=== PATIENT | male | born 1950 | race Caucasian/White ===

== ENCOUNTER 2016-11-14 15:40 | Inpatient (IN) | payer OTHER ==
[~2016-11-14] VITALS: Ht 165.1 cm; Wt 75.7 kg
[2016-11-14] MEDS ORDERED: IV NS 0.9% 1,000 ML BAG IV ONE (16:00)
--- NOTE | 2016-11-14 16:00 | NUR ---
PATIENT BIB RA FROM [facility] D/T [facility]NC[facility]. PATIENT IS A/OX 4 AT THIS TIME. BREATHING EVEN AND UNLABORED ON ROOM AIR. NO SOB. NO TRAUMA NOTED. HAS ACTIVE DIARRHEA. PATIENT'S VITALS STABLE. SAFETY AND COMFORT MEASURES IN PLACE. AWAITING MD ORDERS.
--- NOTE | 2016-11-14 16:10 | NUR ---
IV ON LEFT HAND, 18 G IS LEAKING. IV REMOVED. NEW IV STARTED ON RFA, 20 G.
[2016-11-14 16:19] LABS: BASOPHILS # (AUTO) 0.1 /CMM (0.0-0.2); EOSINOPHILS # (AUTO) 0.1 /CMM (0.0-0.7); EOSINOPHILS % (AUTO) 1.6 % (0.0-6.0); HEMATOCRIT 40 % (39-51); HEMOGLOBIN 12.9 g/dL (13.5-17.5); LYMPHOCYTES # (AUTO) 2.2 /CMM (0.8-4.8); LYMPHOCYTES % (AUTO) 30.1 % (20.0-44.0); MEAN CORPUSCULAR HEMOGLOBIN 24 PG (26.0-33.0); MEAN CORPUSCULAR HGB CONC 32 g/dl (31.0-36.0); MEAN CORPUSCULAR VOLUME 75 fL (80-96); MONOCYTES # (AUTO) 0.6 /CMM (0.1-1.30); MONOCYTES % (AUTO) 7.8 % (2.0-12.0); NEUTROPHILS # (AUTO) 4.4 /CMM (1.8-8.9); NEUTROPHILS % (AUTO) 59.5 % (43.0-81.0); PLATELET COUNT (AUTO) 288 /CMM (150-450); RED BLOOD CELL COUNT(AUTO) 5.35 MIL/uL (4.5-6.0); WHITE BLOOD COUNT (AUTO) 7.3 K/uL (4.3-11.0)
[2016-11-14 16:30] LABS: CALCIUM, SERUM 8.9 mg/dL (8.5-10.1); CARBON DIOXIDE 25 mmol/L (21-32); CHLORIDE 106 mmol/L (98-107); CREATININE 1.3 mg/dL (0.6-1.3); GLUCOSE 147 mg/dL (74-106); POTASSIUM 3.8 mmol/L (3.5-5.1); SODIUM SERUM 141 mmol/L (136-145); UREA NITROGEN, BLOOD 29 mg/dL (7-18)
--- NOTE | 2016-11-14 16:35 | NUR ---
PATIENT TAKEN TO CT VIA STRETCHER.
[2016-11-14 16:40] LABS: TROPONIN I < 0.017 ng/mL (0.00-0.056)
[2016-11-14 16:41] LABS: INR 1.02 (0.87-1.13); PROTHROMBIN TIME 10.9 SECS (9.5-12.7)
--- NOTE | 2016-11-14 16:45 | NUR ---
PATIENT RETURNED FROM CT.
--- NOTE | 2016-11-14 18:32 | NUR ---
PATIENT C/O BLOODY STOOL, DR. PARISI COLLECTED GUAIAC SAMPLE AND SENT TO LAB. WILL CONTINUE TO MONITOR.
[2016-11-14] MEDS ORDERED: OMEP10CA4 PO (18:53)
[2016-11-14] MEDS ORDERED: FINA5TAB11 PO (18:53)
[2016-11-14] MEDS ORDERED: ATOR10TA PO (18:53)
[2016-11-14] MEDS ORDERED: TAMS0.4C34 PO (18:53)
[2016-11-14] MEDS ORDERED: PANTOPRAZOLE 80 MG in IV NS 0.9% 500 ML IV ONE (19:00)
--- NOTE | 2016-11-14 19:00 | NUR ---
PATIENT WILL BE ADMITTED INTO [facility] BED 308-1.
[2016-11-14] MEDS ORDERED: PANTOPRAZOLE 40 MG VIAL ONE (19:02)
--- NOTE | 2016-11-14 19:25 | NUR ---
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
[2016-11-14] MEDS ORDERED: PANTOPRAZOLE 40 MG VIAL IV ONE (19:30)
--- NOTE | 2016-11-14 19:31 | NUR ---
declan santa took report for yan
--- NOTE | 2016-11-14 19:40 | NUR ---
DR ISRAEL ON THE PHONE WITH DR PARISI.
--- NOTE | 2016-11-14 19:55 | NUR ---
transported pt to tele bed without incident
[2016-11-14 20:00] VITALS: BP 135/66
--- NOTE | 2016-11-14 20:00 | NUR ---
TELE/RN OPENING NOTES PT RECEIVED VIA GURNEY FROM ER. PT AWAKE AND ALERTX4. ON ROOM AIR, DENIES SOB OR PAIN, BREATHING EVEN AND UNLABORED. NO S/S OF DISTRESS NOTED. PLACED ON TELE MONITOR SHOWING SINUS RHYTHM WITH HEART RATE AT 69. IV TO RFA PATENT AND INTACT. ORIENTED PT TO ROOM AND CALL LIGHT AND ENCOURAGED PT TO CALL FOR ASSISTANCE WHEN NEEDING TO USE RESTROOM. URINAL PLACED AT BEDSIDE. BELONGINGS LIST COMPLETED AND PLACE IN CHART. INFORMED PT ABOUT PLAN OF CARE. BED IN LOW/LOCKED POSITION, CALL LIGHT WITHIN REACH. SIDE RAILS UPX2. WILL CONTINUE TO MONITOR
[2016-11-14] MEDS ORDERED: Z GUARD REMEDY 2 OZ OINT TP PRN (20:30)
[2016-11-14] MEDS ORDERED: ZOLPIDEM TARTRATE 5 MG TABLET PO PRN (20:30)
[2016-11-14] MEDS ORDERED: HYDROCODONE/APAP 5/325MG 1 EACH TABLET PO PRN (20:30)
[2016-11-14] MEDS ORDERED: ONDANSETRON HCL/PF 4 MG/2 ML VIAL IVP PRN (20:30)
--- NOTE | 2016-11-14 23:54 | NUR ---
TELE/RN NOTES DR. ISRAEL AT BEDSIDE. ASSESSMENT PERFORMED. NO NEW ORDERS AT THIS TIME.
[2016-11-15] VITALS (7 sets, daily range): BP systolic 104–127; BP diastolic 44–72
--- NOTE | 2016-11-15 | NUR ---
TELE/RN NOTES (PCP) PT REQUESTING THAT EPIC MD CONTACT HIS PCP DR. NAIK FROM [facility] AT [phone]
[2016-11-15] MEDS: ACETAMINOPHEN 325 MG TABLET PO PRN (03:16)
--- NOTE | 2016-11-15 03:23 | NUR ---
TELE/RN NOTES PT COMPLAINING OF HEADACHE AND NAUSEA. ADMINISTERED PRN TYLENOL AND ZOFRAN ORDERED. WILL MONITOR FOR EFFECTIVENESS. SMALL SIP OF WATER GIVEN WITH TYLENOL
--- NOTE | 2016-11-15 06:41 | NUR ---
TELE/RN CLOSING NOTES PT AWAKE, A/OX4. REMAINS ON RA, BREATHING EVEN AND UNLABORED. NO S/S OF DISTRESS. DENIES SOB OR PAIN AT THIS TIME. ON TELE MONITOR SHOWING SINUS FERCHO WITH HR AT 56. NO NAUSEA NOTED. IV TO RFA PATENT AND INTACT. PT REQUESTING THAT EPIC MD CONTACT HIS PCP (DR. NAIK FROM [facility] AT [phone]). PT SAID HE ALSO WILL CALL HIS PCP THIS AM AROUND [phone]. PT FEELING CONSTIPATED, USED RESTROOM WITH NO BM BUT WITH SOME BRIGHT RED BLOOD TO TOILET PAPER. OTHERWISE PT MADE COMFORTABLE THROUGHOUT SHIFT. ALL NEEDS MET AND ATTENDED. BED IN LOW/LOCKED POSITION, CALL LIGHT IN REACH. SIDE RAILS UPX2. WILL ENDORSE TO AM SHIFT SERGEY.
[2016-11-15 06:54] LABS: BASOPHILS % (AUTO) 0.3 % (0.0-2.0); EOSINOPHILS # (AUTO) 0.1 /CMM (0.0-0.7); EOSINOPHILS % (AUTO) 1.3 % (0.0-6.0); HEMATOCRIT 36 % (39-51); HEMOGLOBIN 11.5 g/dL (13.5-17.5); LYMPHOCYTES # (AUTO) 1.5 /CMM (0.8-4.8); LYMPHOCYTES % (AUTO) 16.9 % (20.0-44.0); MEAN CORPUSCULAR HEMOGLOBIN 24 PG (26.0-33.0); MEAN CORPUSCULAR HGB CONC 32 g/dl (31.0-36.0); MEAN CORPUSCULAR VOLUME 75 fL (80-96); MONOCYTES # (AUTO) 0.7 /CMM (0.1-1.30); MONOCYTES % (AUTO) 8.2 % (2.0-12.0); NEUTROPHILS # (AUTO) 6.3 /CMM (1.8-8.9); NEUTROPHILS % (AUTO) 73.3 % (43.0-81.0); PLATELET COUNT (AUTO) 236 /CMM (150-450); RDW COEFFICIENT OF VARIATION 18.2 (11.5-15.0); RED BLOOD CELL COUNT(AUTO) 4.71 MIL/uL (4.5-6.0); WHITE BLOOD COUNT (AUTO) 8.6 K/uL (4.3-11.0)
[2016-11-15 07:20] LABS: CALCIUM, SERUM 8.5 mg/dL (8.5-10.1); PHOSPHORUS 3.4 mg/dL (2.5-4.9); POTASSIUM 4.3 mmol/L (3.5-5.1)
--- NOTE | 2016-11-15 07:29 | NUR ---
MS/RN OPENING NOTE PATIENT RECEIVED FROM PATIENT CASE MANAGER IN STABLE CONDITION. DENIES OF PAIN AT THIS TIME. NO IMMEDIATE NEEDS. CALL LIGHT IN REACH. WILL CONTINUE TO MONITOR TO ENSURE SAFETY.
[2016-11-15] MEDS: FINASTERIDE (5 MG) 5 MG TABLET PO SCH (08:31)
--- NOTE | 2016-11-15 09:31 | NUR ---
MS/RN SEEN BY DR. EDGE WITH NEW ORDERS FOR EEG TODAY.
--- NOTE | 2016-11-15 11:31 | NUR ---
MS/RN SEEN BY DR GEORGE SEEN BY DR. GEORGE WITH NEW ORDERS FOR EGD AND COLONOSCOPY FOR TOMORROW. BOWEL PREP ORDERED.
--- NOTE | 2016-11-15 11:33 | NUR ---
MS/RN PREVIOUS COLONOSCOPY CONTACTED PATIENT PREVIOUS PRIMARY DR. NAIK ([facility]) [phone] AND REQUESTED PREVIOUS COLONOSCOPY RESULTS DONE ON 2016. PER KAI DEE FROM [facility] GI, WILL FAX THE RESULTS AT [phone]. WILL FOLLOW UP.
--- NOTE | 2016-11-15 11:41 | NUR ---
MS/RN SEEN BY DISHA AGUILAR INFANTRYMAN SEEN BY DISHA WITH ORDER FOR ECHOCARDIOGRAM TODAY.
--- NOTE | 2016-11-15 12:20 | NUR ---
Social service consult requested by Dr. Cortez due to history of falls in the past 30 days. Pt. is a 66 year old male who was admitted to [facility] for GI Bleed. SW and spring encaser Manolo met with pt. bedside. Pt. is alert and oriented x4. Pt. states he resides with his twin brother Nacho at [address] [place] [address], [address] in [place]. [place]. Pt. states he has had five syncope episodes in the past 30 days. Pt. would like to be discharged home once medically cleared. Pt. states his brother will most likely pick him up once medically cleared.
[2016-11-15] MEDS ORDERED: BISACODYL 5 MG TABLET PO ONE (14:00)
[2016-11-15] MEDS ORDERED: PEG 3350/NA SULF,BICARB,CL/KCL 4,000 ML BOTTLE PO ONE (14:00)
[2016-11-15] MEDS ORDERED: BISACODYL (5 MG) 5 MG TABLET.DR PO ONE (14:00)
[2016-11-15] MEDS ORDERED: MAGNESIUM CITRATE 296 ML BOTTLE PO ONE (14:00)
--- NOTE | 2016-11-15 14:07 | NUR ---
MS/RN BOWEL PREP STARTED BOWEL PREP STARTED WITH BISACODYL 10MG AND MAGNESIUM CITRATE.
--- NOTE | 2016-11-15 16:46 | NUR ---
MS/RN BOWEL PREP GOLYTELY STARTED AT 1624.
--- NOTE | 2016-11-15 17:01 | NUR ---
MS/RN EEG UNABLE TO DO EEG PREP. VP TRAINING AT BEDSIDE BUT DUE TO PATIENT ON BOWEL PREP AND NEEDS TO USE THE BATHROOM. WILL FOLLOW UP TOMORROW.
--- NOTE | 2016-11-15 18:38 | NUR ---
MS/RN CLOSING NOTE PATIENT CONTINUES WITH BOWEL PREP, TOLERATING WELL. CONSENT FORMS FOR EGD AND COLONOSCOPY OBTAINED AND PLACED IN CHART, ALL SIGNED BY PATIENT. ALL NEEDS ADDRESSED, WILL ENDORSE TO VP INFORMATION TECHNOLOGY.
[2016-11-15] MEDS: PANTOPRAZOLE 40 MG VIAL IV SCH (18:48)
--- NOTE | 2016-11-15 19:17 | NUR ---
RN OPEN NOTES RECEIVED PATIENT AWAKE IN BED. A/O X3. NO SIGNS OF DISTRESS OR DISCOMFORT. BREATHING EVEN AND UNLABORED. ON TELE MONITORING WITH SR NOTED. IV ACCESS IN RFA PATENT AND INTACT, NO SIGNS OF REDNESS OR INFILTRATION. BED IN LOW LOCKED POSITION WITH SIDE RAILS X2. CALL LIGHT WITHIN REACH. WILL CONTINUE TO MONITOR.
[2016-11-16] VITALS (8 sets, daily range): BP systolic 86–119; BP diastolic 42–57
--- NOTE | 2016-11-16 00:03 | NUR ---
RN NOTES PATIENT HAS FINISHED ENTIRE GOLYTELY BOWEL PREP. STOOL IS NOW CLEAR YELLOW WITH SCANT PARTICLES. WILL CONTINUE TO MONITOR.
--- NOTE | 2016-11-16 06:22 | NUR ---
RN OPEN NOTES PATIENT AWAKE IN BED. A/O X3. NO SIGNS OF DISTRESS OR DISCOMFORT. BREATHING EVEN AND UNLABORED. ON TELE MONITORING WITH SR NOTED. IV ACCESS IN RFA PATENT AND INTACT, NO SIGNS OF REDNESS OR INFILTRATION. ALL NEEDS MET. NO SIGNIFICANT CHANGES THROUGH THE NIGHT. BED IN LOW LOCKED POSITION WITH SIDE RAILS X2. CALL LIGHT WITHIN REACH. WILL ENDORSE TO AM SHIFT FOR SERGEY.
--- NOTE | 2016-11-16 07:54 | NUR ---
pipe tester Initial Notes: Received patient resting in bed. Patient is alert oriented x3. Non-labored breathing noted. No signs of distress. Patient denies pain. Patient on Telemetry monitoring with sinus bradycardia noted. IV line on right forearm intact and patent. Call light within reach. Bed at lowest/locked position. Will continue to monitor. Patient left with staff members for colonoscopy procedure at 0745.
[2016-11-16] MEDS ORDERED: SIMETHICONE SUSP 40 MG/0.6 ML BOTTLE ONE (08:24)
--- NOTE | 2016-11-16 09:07 | NUR ---
boatbuilder wood Note" Patient arrived on unit from colonoscopy procedure. Patient alert oriented x3. Temperature 98.0F, Blood pressure 105/68, 52 beats/min with sinus rhythm, and SPO2 96 % on 2 L nasal cannula. Patient is stable.
[2016-11-16] MEDS: FINASTERIDE (5 MG) 5 MG TABLET PO SCH (10:10)
[2016-11-16 12:25] LABS: BASOPHILS % (AUTO) 0.5 % (0.0-2.0); EOSINOPHILS # (AUTO) 0.1 /CMM (0.0-0.7); EOSINOPHILS % (AUTO) 1.7 % (0.0-6.0); HEMATOCRIT 33 % (39-51); HEMOGLOBIN 10.7 g/dL (13.5-17.5); LYMPHOCYTES # (AUTO) 1.3 /CMM (0.8-4.8); LYMPHOCYTES % (AUTO) 26.9 % (20.0-44.0); MEAN CORPUSCULAR HEMOGLOBIN 24 PG (26.0-33.0); MEAN CORPUSCULAR HGB CONC 32 g/dl (31.0-36.0); MEAN CORPUSCULAR VOLUME 75 fL (80-96); MONOCYTES # (AUTO) 0.3 /CMM (0.1-1.30); MONOCYTES % (AUTO) 7.1 % (2.0-12.0); NEUTROPHILS # (AUTO) 3.1 /CMM (1.8-8.9); NEUTROPHILS % (AUTO) 63.8 % (43.0-81.0); PLATELET COUNT (AUTO) 218 /CMM (150-450); RDW COEFFICIENT OF VARIATION 18.6 (11.5-15.0); RED BLOOD CELL COUNT(AUTO) 4.46 MIL/uL (4.5-6.0); WHITE BLOOD COUNT (AUTO) 4.9 K/uL (4.3-11.0)
[2016-11-16 12:43] LABS: CALCIUM, SERUM 8.4 mg/dL (8.5-10.1); CREATININE 0.9 mg/dL (0.6-1.3); POTASSIUM 4.4 mmol/L (3.5-5.1)
--- NOTE | 2016-11-16 15:13 | NUR ---
LAYING DOWN: 108/53 WITH HR OF 51. SITTING DOWN 101/80 WITH HR OF 61. STANDING UP 105/53 WITH HR OF 74 Addendum: 11/16/16 at 1905 by RUTH YU RN Amended: Links added.
[2016-11-16] MEDS: PANTOPRAZOLE 40 MG VIAL IV SCH (17:33)
--- NOTE | 2016-11-16 19:10 | NUR ---
LAYING DOWN 108/53, HR 51/MIN. SITTING DOWN 101/80 WITH HR OF 61. STANDING 105/53 WITH 74 HR Addendum: 11/16/16 at 1910 by RUTH YU RN Amended: Links added.
--- NOTE | 2016-11-16 19:35 | NUR ---
MS/RN NOTES RECEIVED PT. LYING IN BED RESTING. PT. IS ALERT AND ORIENTED X3. BREATHING EVEN AND UNLABORED ON ROOM AIR. NO SOB, RESPIRATORY DISTRESS OR COMPLAINTS OF PAIN NOTED AT THIS TIME. PT. WITH RIGHT FOREARM 20 GAUGE IV SALINE LOCK PRESENT, PATENT AND INTACT. BED IN LOWEST POSITION, CALL LIGHT WITHIN REACH, SIDE RAILS UP X3, WILL CONTINUE TO MONITOR.
--- NOTE | 2016-11-16 19:46 | NUR ---
RN Notes: Patient resting in bed. Patient is alert oriented x3. Non-labored breathing noted. No signs of distress. Patient denies pain. IV line on right forearm intact and patent. Call light within reach. Bed at lowest/locked position. Endorsed to next shift.
[2016-11-17] MEDS: ACETAMINOPHEN 325 MG TABLET PO PRN (02:26)
--- NOTE | 2016-11-17 05:30 | NUR ---
MS/RN NOTES PT. COMPLAINING OF CONSTIPATION AND REQUESTING MEDICATION TO HELP HIM GO TO THE BATHROOM. NOTIFIED EPIC VENEER SORTER KELSI CHAMBERS. PER KELSI CHAMBERS NEW ORDERS: DULCOLAX 10MG SUPPOSITORY X1 AND COLACE 100 MG PO BID. WILL CARRY OUT ORDERS. WILL CONTINUE TO MONITOR.
[2016-11-17] MEDS ORDERED: BISACODYL SUPP (10 MG) 10 MG/SUPP.RECT SUPP.RECT RC ONE (06:30)
--- NOTE | 2016-11-17 06:55 | NUR ---
MS/RN NOTES PT. IS LYING IN BED RESTING. BREATHING EVEN AND UNLABORED ON ROOM AIR. NO SOB, RESPIRATORY DISTRESS OR COMPLAINTS OF PAIN NOTED AT THIS TIME. PT. WITH RIGHT FOREARM 20 GAUGE IV SALINE LOCK PRESENT, PATENT AND INTACT. ALL PT. NEEDS MET. BED IN LOWEST POSITION, CALL LIGHT WITHIN REACH, SIDE RAILS UP X3, WILL ENDORSE TO DAYSHIFT NURSE FOR CONTINUITY OF CARE.
--- NOTE | 2016-11-17 07:13 | NUR ---
MS RN OPENING NOTES RECEIVED PT AWAKE IN BED IN NO ACUTE SIGNS OF DISTRESS. A/O X3, NO COMPLAINTS OF PAIN OR DISCOMFORTS VOICED AT THIS TIME. ON ROOM AIR, BREATHING EVEN AND UNLABORED. IV ACCESS ON RIGHT FA G#20 PATENT AND INTACT. BED IN LOWEST POSITION AND LOCKED WITH SIDE-RAILS UP X2. CALL LIGHT WITHIN REACH. WILL MAINTAIN ALL SAFETY MEASURES AND WILL CONTINUE TO MONITOR PT ACCORDINGLY.
[2016-11-17 07:37] LABS: BASOPHILS % (AUTO) 0.4 % (0.0-2.0); EOSINOPHILS # (AUTO) 0.2 /CMM (0.0-0.7); EOSINOPHILS % (AUTO) 2.5 % (0.0-6.0); HEMATOCRIT 35 % (39-51); HEMOGLOBIN 11.2 g/dL (13.5-17.5); LYMPHOCYTES # (AUTO) 1.4 /CMM (0.8-4.8); LYMPHOCYTES % (AUTO) 22.1 % (20.0-44.0); MEAN CORPUSCULAR HEMOGLOBIN 24 PG (26.0-33.0); MEAN CORPUSCULAR HGB CONC 32 g/dl (31.0-36.0); MEAN CORPUSCULAR VOLUME 75 fL (80-96); MONOCYTES # (AUTO) 0.3 /CMM (0.1-1.30); MONOCYTES % (AUTO) 5.6 % (2.0-12.0); NEUTROPHILS # (AUTO) 4.3 /CMM (1.8-8.9); NEUTROPHILS % (AUTO) 69.4 % (43.0-81.0); PLATELET COUNT (AUTO) 228 /CMM (150-450); RDW COEFFICIENT OF VARIATION 18.6 (11.5-15.0); RED BLOOD CELL COUNT(AUTO) 4.62 MIL/uL (4.5-6.0); WHITE BLOOD COUNT (AUTO) 6.1 K/uL (4.3-11.0)
[2016-11-17 08:00] VITALS: BP_SYST 112; BP_SYST 114; BP_DIAS 49; BP_DIAS 73
[2016-11-17] MEDS: FINASTERIDE (5 MG) 5 MG TABLET PO SCH (08:19)
[2016-11-17 08:22] LABS: CALCIUM, SERUM 8.5 mg/dL (8.5-10.1); PHOSPHORUS 3.1 mg/dL (2.5-4.9); POTASSIUM 3.9 mmol/L (3.5-5.1)
[2016-11-17] MEDS ORDERED: DOCUSATE SODIUM 100 MG CAPSULE PO SCH (09:00)
[2016-11-17] MEDS ORDERED: LEVETIRACETAM (250 MG) 250 MG TABLET PO SCH (09:30)
[2016-11-17] MEDS ORDERED: LEVE250T2 PO (11:16)
--- NOTE | 2016-11-17 11:37 | NUR ---
RN NOTES SEEN BY NP. Kaveh AGUILAR WITH ORDER TO CHECK ORTHOSTATIC BP: LYING 124/58 mmHg, SITTING 111/58 mmHg and STANDING 112/62mmHg, no complaints of dizziness voiced. AMMONIA SOLUTION PREPARER made aware.
--- NOTE | 2016-11-17 12:05 | NUR ---
DINO received a call from [facility] stating, pt. would like to speak with SW. DINO met with pt. bedside. Pt. is alert and oriented x 4. Pt. informed SW that he has been in a funk lately. Pt. states, he had to move out of his apartment since his landlord didn't want him there anymore and place all his belongings in storage. Pt. is currently living with is twin brother who is very supportive of pt. Pt. seemed a bit frustrated to not have a diagnosis in regards to his syncope episodes he has been having. SW provided active listening and emotional support to pt. DINO encouraged pt. to see a therapist for his depression. Pt. states he has a therapist. DINO encouraged pt. to see a psychiatrist and maybe get some medication for his depression. DINO inquired with pt. if he would like resources in his catchment area for psychiatry. Pt. declined stating he will speak with his therapist and get referrals. Pt. stated he has to a doctor's appointment in [facility] this upcoming Monday for a possible sleep study at the [facility]. Pt. states, he might be suffering from sleep Apnea. Pt's brother will be coming to pick pt. up from the hospital today once he is medically cleared. DINO informed pt. she is available if he would like to speak with her again prior to discharge. DINO notified [facility]ail[facility] that pt. was seen by SW.
--- NOTE | 2016-11-17 15:25 | NUR ---
FUEL BUYER NOTES PATIENT DISCHARGED HOME IN STABLE CONDITION. ALERT AND ORIENTED X4, NO C/O PAIN OR DISCOMFORTS DURING DISCHARGE. HE LEFT UNIT AMBULATORY AT 1520H ACCOMPANIED BY HIS BROTHER. V/S TAKEN AND RECORDED. SKIN IS INTACT. BELONGINGS CHECKED, COUNTED AND SIGNED FORM. HIS [employer] KNIFE COULDN'T BE LOCATED, HE STATED THAT SOON WE SEE IT WE'LL GIVE HIM A CALL FOR HIM TO PICK -IT UP. HEALTH TEACHINGS GIVEN AND VERBALIZED UNDERSTANDING. MD AND CHARGE NURSE AWARE OF DISCHARGE.
== END 2016-11-17 15:30 | disposition home or self-care (01) | DRG 377 ==
LOC: ER 15:41 → TELE 19:05 → MED 11-16 10:36
PROVIDERS: ADMIT Family Medicine; ATTEND Family Medicine
PROC: 0DBN8ZX Excision of Sigmoid Colon, Via Natural or Artificial Opening Endoscopic, Diagnostic (ICD-10-PCS; 2016-11-16)
PROC: 0DB68ZX Excision of Stomach, Via Natural or Artificial Opening Endoscopic, Diagnostic (ICD-10-PCS; principal; 2016-11-16 08:09)
PROC: 0DBM8ZX Excision of Descending Colon, Via Natural or Artificial Opening Endoscopic, Diagnostic (ICD-10-PCS; 2016-11-16 08:09)
DX: K62.5 Hemorrhage of anus and rectum (principal); N17.0 Acute kidney failure with tubular necrosis; K51.511 Left sided colitis with rectal bleeding; K64.8 Other hemorrhoids; K29.70 Gastritis, unspecified, without bleeding; E86.9 Volume depletion, unspecified; D50.9 Iron deficiency anemia, unspecified; E78.5 Hyperlipidemia, unspecified; E86.0 Dehydration; G40.909 Epilepsy, unspecified, not intractable, without status epilepticus; G93.89 Other specified disorders of brain; K44.9 Diaphragmatic hernia without obstruction or gangrene; K59.00 Constipation, unspecified; N40.0 Benign prostatic hyperplasia without lower urinary tract symptoms; Z79.899 Other long term (current) drug therapy; Z80.51 Family history of malignant neoplasm of kidney; I95.1 Orthostatic hypotension; R73.9 Hyperglycemia, unspecified; Z85.841 Personal history of malignant neoplasm of brain
CPT/HCPCS: 36415; 70450-TC; 71010-TC; 80048-TC; 80061-TC; 82272-TC; 83735-TC; 84100-TC; 84484-TC; 85025-TC; 85730-TC; 86850-TC; 88305-TC; 88313-TC; 88342; 93307-TC; 95819-TC; A4606; C9113; J2405; J2704; J7030; J7040; Z7610